=== PATIENT | male | born 1980 | race African-American/Black ===

== ENCOUNTER 2022-01-31 05:50 | Emergency (ER) | payer BC, SELFPAY ==
[2022-01-31] VITALS (10 sets, daily range): BP systolic 129–156; BP diastolic 88–107; PULSE 60–79; RESP 13–37; TEMP 36.4; O2SAT 98–100
--- NOTE | ~2022-01-31 | XR_ITS ---
EXAMINATION: XR chest 2V DATE: 01/31/2022 06:23 INDICATION: Chest pain. Left arm pain. TECHNIQUE: Frontal and lateral views of the chest were obtained. COMPARISON: None. FINDINGS: The chest demonstrates clear lungs without pneumonia, pleural effusion, or pneumothorax. Th e heart size is normal. IMPRESSION: 1. No acute cardiopulmonary disease. Reviewed, dictated and finalized at location A. ENTARY SECRETARY
--- NOTE | 2022-01-31 05:51 | ECG_ITS ---
Measurements Intervals [place] Rate: 76 P: 53 FL: 181 QRS: 59 QRSD: 98 T: 19 QT: 367 QTc: 415 Interpretive Statements SINUS RHYTHM NORMAL ECG NO PREVIOUS ECG AVAILABLE FOR COMPARISON Electronically Signed On 01-31-2022 10:20:35 SENIOR ONLINE MARKETING MANAGER by Adriel Donohue M.D.
[2022-01-31 06:20] LABS: Basophils Percent Auto 0.2 % (0.2-1.2); Eosinophils Absolute Auto 0.1 K/mm3 (0-0.3); Eosinophils Percent Auto 1.9 % (0-4.4); Hematocrit 41.5 % (42.0-52.0); Hemoglobin 14.2 g/dL (14.0-18.0); Immature Granulocyte Absolute 0.01 K/mm3 (0.00-0.031); Immature Granulocyte Percent A 0.2 % (0-0.5); Lymphocytes Absolute Auto 1.81 K/mm3 (0.9-3.2); Mean Corpuscular HGB Conc 34.2 g/dl (32-36); Mean Corpuscular Hemoglobin 28.4 pg (26-34); Mean Platelet Volume 10.4 fl (7.4-10.4); Monocytes Absolute Auto 0.4 K/mm3 (0.1-0.6); Monocytes Percent Auto 8.6 % (2.6-8.5); Neutrophils Absolute Auto 1.9 K/mm3 (1.3-6.7); Neutrophils Percent Auto 46.1 % (45.5-73.1); Platelet Count Result 255 k/mm3 (150-375); Red Cell Distribution Width 12.9 % (11.5-14.5); White Blood Count 4.2 K/mm3 (4.5-10.0)
[2022-01-31 06:46] LABS: Alanine Aminotransferase 32 U/L (6-50); Albumin Level 4.7 g/dL (3.5-5.1); Alkaline Phosphatase 45 U/L (38-126); Anion Gap 7 mmol/L (8-16); Aspartate Amino Transferase 26 U/L (17-59); Bilirubin,Total 0.6 mg/dL (0.2-1.3); Blood Urea Nitrogen 17 mg/dL (9-20); Calcium 9.3 mg/dL (8.4-10.2); Carbon Dioxide 29 mmol/L (22-30); Chloride 106 mmol/L (98-107); Estimated Glomerular Filt Rate 48; Glucose 107 mg/dL (65-110); Lipase 63 U/L (23-300); Potassium 4.6 mmol/L (3.4-5.0); Sodium 142 mmol/L (137-145)
[2022-01-31 06:57] LABS: Troponin I < 0.012 ng/mL (0.000-0.034)
[2022-01-31 07:57] LABS: Prothrombin Time 12.8 Seconds (11.1-14.7)
[2022-01-31 07:58] LABS: Partial Thromboplastin Time 30.7 SECONDS (22.3-36.8)
[2022-01-31 09:18] LABS: Troponin I < 0.012 ng/mL (0.000-0.034)
--- NOTE | 2022-01-31 09:54 | ED.GENADULT ---
HPI - General Adult General Chief complaint: Chest Pain Stated complaint: chest pain Time Seen by Provider: 01/31/22 08:11 History of Present Illness HPI narrative: 41-year-old male with a past medical history of fibromyalgia presents to our department with a left-sided chest and axillary pain that woke him from sleep. Pain is reproducible and has resolved at the time of my evaluation. Patient had a significantly extended stay in the waiting room because of the multiple boarding patients in the ER and in that time he has had a complete work-up which includes EKG and screening labs which included 2 negative troponins and a chest x-ray with no acute cardiopulmonary abnormalities. Pain has completely resolved by the time I have seen patient without intervention. Review of Systems Review of Systems: CONSTITUTIONAL: Denies fever, chills, or sweats. EYES: Denies visual changes, redness, or discharge. ENT: Denies rhinorrhea, congestion, sore throat, or otalgia. CARDIOVASCULAR: Denies chest pain, palpitations, or edema. RESPIRATORY: Denies cough or dyspnea. GASTROINTESTINAL: Denies abdominal pain, nausea, vomiting, or diarrhea. GENITOURINARY: Denies dysuria or hematuria. SKIN: Denies rash or itching. MUSCULOSKELETAL: Denies back pain, joint pain, or myalgia. NEUROLOGIC: Denies headache, numbness, or weakness. PSYCHIATRIC: Denies anxiety or depression. Exam Narrative: GENERAL: Well-appearing, well-nourished, and in no acute distress. HEAD: Normocephalic, atraumatic. EYES: PERRLA and EOMI. ENT: Nares clear, no rhinorrhea or epistaxis. Mucous membranes moist. NECK: Supple. CHEST: Clear to auscultation. No respiratory distress. HEART: Regular rate and rhythm. No murmur heard. Normal peripheral pulses. ABDOMEN: Soft, nontender, nondistended, normal active bowel sounds. EXTREMITIES: Normal range of motion. No edema. SKIN: Warm, dry, no rash. NEURO: No focal deficits. Alert and oriented x3. PSYCH: Normal mood and affect. Course Vital Signs Vital signs: Vital Signs Temperature 97.5 F L 01/31/22 05:52 Pulse Rate 79 01/31/22 05:52 Respiratory Rate 20 01/31/22 05:52 Blood Pressure 156/107 H 01/31/22 05:52 Pulse Oximetry 100 01/31/22 05:52 Oxygen Delivery Room Air 01/31/22 05:52 Temperature 97.5 F L 01/31/22 05:52 Pulse Rate 64 01/31/22 09:50 Respiratory Rate 20 01/31/22 05:52 Blood Pressure 156/107 H 01/31/22 05:52 Pulse Oximetry 100 01/31/22 05:52 Oxygen Delivery Room Air 01/31/22 05:52 Medical Decision Making MDM Narrative Medical decision making narrative: Heart score equals low risk of Mace. Work-up is unremarkable including negative troponins x2. Chest x-ray with no acute cardiopulmonary abnormalities and I also viewed these images. EKG with a sinus rhythm at 76 bpm, VT interval of 181, QRS duration of 98, QTc 398, normal axis and no ischemic changes. Patient is stable for DC home and follows with a electronic parts salesperson at the [place]. This does not seem to be chest pain with a cardiac etiology. Vital Signs Vital Signs: Vital Signs Temperature 97.5 F L 01/31/22 05:52 Pulse Rate 79 01/31/22 05:52 Respiratory Rate 20 01/31/22 05:52 Blood Pressure 156/107 H 01/31/22 05:52 Pulse Oximetry 100 01/31/22 05:52 Oxygen Delivery Room Air 01/31/22 05:52 Temperature 97.5 F L 01/31/22 05:52 Pulse Rate 64 01/31/22 09:50 Respiratory Rate 20 01/31/22 05:52 Blood Pressure 156/107 H 01/31/22 05:52 Pulse Oximetry 100 01/31/22 05:52 Oxygen Delivery Room Air 01/31/22 05:52 Lab Data 01/31/22 06:02 01/31/22 06:02 Labs: Lab Results 01/31/22 01/31/22 01/31/22 Range/Units 06:02 06:02 06:02 WBC 4.2 L (4.5-10.0) K/mm3 RBC 5.00 (4.6-6.20) M/mm3 Hgb 14.2 (14.0-18.0) g/dL Hct 41.5 L (42.0-52.0) % MCV 83.0 (80-100) fl MCH 28.4 (26-34) pg MCHC 34.2 (32-36) g/dl RDW 12.9 (11.5-14.5) % Plt Count 255 (150
--- NOTE | 2022-01-31 10:09 | PC.NURSE ---
Patient seen and assessed by Dr. Mijares.
== END 2022-01-31 10:10 | disposition home or self-care (01) ==
PROVIDERS: Emergency Medicine; Emergency Provider Emergency Medicine
DX: R07.89 Other chest pain (principal); M79.7 Fibromyalgia
CPT/HCPCS: 36415; 71046; 80053; 83690; 84484; 85025; 85610; 85730; 93005; 99284

== ENCOUNTER 2023-06-04 20:12 | Emergency (ER) | payer BC, SELFPAY ==
--- NOTE | ~2023-06-04 | CT_ITS ---
EXAMINATION: CT pelvis wo con DATE: 06/04/2023 22:23 INDICATION: Left inguinal bulge. TECHNIQUE: Computed tomography (CT) of the pelvis was performed without intravenous contrast. Automat ed exposure control and iterative reconstruction technique were employed. The dose-length product was 619.86 mGy-cm. COMPARISON: None FINDINGS: There is an umbilical hernia containing a wall of nonobstructed small bowel. The appendix i s normal. There are no pathologically enlarged lymph nodes. There is no free intraperitoneal fluid. 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 IMPRESSION: 1. No abnormal left inguinal mass. 2. Umbilical hernia containing a wall of nonobstructed small bowel. Reviewed, dictated and finalized at location E.
[2023-06-04 20:20] VITALS: BP 167/86; PULSE 69; RESP 16; TEMP 36.3; O2SAT 100
--- NOTE | 2023-06-04 22:21 | ED.GENADULT ---
HPI - General Adult General Chief complaint: Unspecified Stated complaint: lump in groin Time Seen by Provider: 06/04/23 21:04 Source: patient Mode of arrival: ambulatory Limitations: no limitations History of Present Illness HPI narrative: Patient is a 42-year-old male who presented to the ED with report of a bulge in his left inguinal region. Patient reports the bulge has been present for the last 3 weeks. States it was smaller at 1st, but has since become slightly larger in size. Present at all times. Denies any aggravating or relieving factors. Denies any pain associated with the bulge. Denies diarrhea, constipation, abd pain, N/V, fevers, dysuria, hematuria, testicular pain or swelling, drainage, abscess formation. Review of Systems Review of Systems: CONSTITUTIONAL: Denies fever, chills, or sweats. GASTROINTESTINAL: See HPI. Denies abdominal pain, nausea, vomiting, or diarrhea. GENITOURINARY: Denies dysuria or hematuria. All systems reviewed & are unremarkable except as noted in HPI and below Exam Narrative: GENERAL: Well appearing, well-nourished, non-toxic, in no acute distress. HEAD: Normocephalic, atraumatic. RESPIRATORY: Airway patent, respirations nonlabored. CARDIOVASCULAR: Regular rate and rhythm ABDOMINAL: Soft, nontender, nondistended. Normoactive BS. MUSCULOSKELETAL: Moves all extremities. No gross deformities. Small soft bulge palpated in left lower inguinal canal, nontender, hernia vs lymphadenopathy? No redness or erythema. No palpable fluctuance. No pustular head. No overlying skin changes. No extension into the testicle/scrotum. No tenderness or swelling of testicle. SKIN: Warm, dry, normal color. NEURO: A&O X3. Speech clear. PSYCHIATRIC: Appropriate mood and affect. Normal interaction. Course Vital Signs Vital signs: Vital Signs Temperature 97.4 F L 06/04/23 20:20 Pulse Rate 69 06/04/23 20:20 Respiratory Rate 16 06/04/23 20:20 Blood Pressure 167/86 H 06/04/23 20:20 Pulse Oximetry 100 06/04/23 20:20 Oxygen Delivery Room Air 06/04/23 20:20 Temperature 97.4 F L 06/04/23 20:20 Pulse Rate 69 06/04/23 20:20 Respiratory Rate 16 06/04/23 20:20 Blood Pressure 167/86 H 06/04/23 20:20 Pulse Oximetry 100 06/04/23 20:20 Oxygen Delivery Room Air 06/04/23 20:20 Medical Decision Making MDM Narrative Medical decision making narrative: Patient presented to ED with 3 week history of bulge in left inguinal region, nonpainful. Exam seems consistent with inguinal hernia vs lymphadenopathy. No skin changes or evidence of strangulation or incarceration at this time. No testicular pain or swelling. No extension into scrotum. Low suspicion for torsion/varicocele/hydrocele. No urinary symptoms. Exam is not consistent with abscess. No systemic signs of infection. No drainage or fluctuance. Will obtain CT to further evaluate. CT pelvis was obtained and unremarkable. No abnormalities noted in left inguinal region. No pathologically enlarged lymph nodes. No inguinal hernia. Does show small umbilical hernia containing nonobstructive bowel. Patient updated on imaging findings. Discussed possibility of mildly enlarged lymph node. Advised patient to follow-up with primary care doctor for further evaluation, recommended he trial warm compresses/anti-inflammatories. Patient was given return precautions. He is in agreement with plan and feels comfortable discharge home. Discharged in stable condition. Medical Records Medical records reviewed: Yes I reviewed the external patient's medical records. Vital Signs Vital Signs: Vital Signs Temperature 97.4 F L 06/04/23 20:20 Pulse Rate 69 06/04/23 20:20 Respiratory Rate 16 06/04/23 20:20 Blood Pressure 167/86 H 06/04/23 20:20 Pulse Oximetry 100 06/04/23 20:20 Oxygen Delivery Room Air 06/04/23 20:20 Temperature 97.4 F L 06/04/23 20:20 Pulse Rate 69 06/04/23 20:20 Respiratory Rate 16
== END 2023-06-04 23:10 | disposition home or self-care (01) ==
PROVIDERS: Emergency Provider Physician Assistant
DX: K42.9 Umbilical hernia without obstruction or gangrene (principal)
CPT/HCPCS: 72192; 99284